=== PATIENT | female | born 1980 | race African-American/Black ===

== ENCOUNTER 2016-09-15 18:48 | Emergency (ER) | payer OTHER ==
[~2016-09-15] VITALS: Ht 152.4 cm; Wt 99.8 kg
[2016-09-15 19:11] VITALS: BP 149/91
[2016-09-15 19:46] LABS: BASOPHILS # (AUTO) 0.3 K/uL (0.00-0.22); EOSINOPHILS # (AUTO) 0.2 K/uL (0-0.4); HEMATOCRIT 42.1 % (36-48); HEMOGLOBIN 13.9 g/dL (12.0-16.0); LYMPHOCYTES # (AUTO) 3.1 K/uL (2.5-16.5); MEAN CORPUSCULAR HEMOGLOBIN 29 pg (27-31); MEAN CORPUSCULAR HGB CONC 33 g/dL (33-37); MEAN CORPUSCULAR VOLUME 88 fL (80-94); MONOCYTES # (AUTO) 0.4 K/uL (0.8-1.0); NEUTROPHILS # (AUTO) 3.5 K/uL (1.8-7.7); PLATELET COUNT (AUTO) 275 K/uL (140-450); RED BLOOD CELL COUNT(AUTO) 4.78 MIL/uL (4.20-5.40); RED CELL DISTRIBUTION WIDTH 12.8 % (11.6-13.7); WHITE BLOOD COUNT (AUTO) 7.5 K/uL (4.8-10.8)
[2016-09-15 19:50] LABS: ANION GAP 9.6 (8-16); CALCIUM 8.7 mg/dL (8.5-10.1); CARBON DIOXIDE 29.2 mmol/L (21-32); CREATININE 0.9 mg/dL (0.6-1.3); POTASSIUM 3.8 mmol/L (3.5-5.1)
[2016-09-15 19:56] LABS: ALBUMIN 3.5 g/dL (3.4-5.0); TOTAL BILIRUBIN 0.2 mg/dL (0.0-1.0); TOTAL PROTEIN, SERUM 7.4 g/dL (6.4-8.2)
--- NOTE | 2016-09-15 20:10 | NUR ---
PT TAKEN TO CT FROM THE LOBBY
--- NOTE | 2016-09-15 20:16 | NUR ---
PT TAKEN TO BED 5
--- NOTE | 2016-09-15 20:24 | NUR ---
35Y F BIB FAMILY C/O DIZZINESS AND HEADACHE X 4 DAYS, INTERRMITTENTLY 7/10 PAIN. PT STATES WHEN SHE WAS AT HOME SHE MEANSURED HER BP AND IT WAS 169/129 AND DECIDED TO COME TO [facility]. PT AAOX4, BREATHING IS UNLABORED AND CLEAR BILAT.
--- NOTE | 2016-09-15 20:49 | NUR ---
Dr. Sofia evaluating patient at bedside.
[2016-09-15] MEDS ORDERED: PROCHLORPERAZINE 10 MG/2 ML VIAL IM ONE (21:00)
[2016-09-15] MEDS ORDERED: diphenhydrAMINE 50 MG/ML VIAL IM ONE (21:00)
[2016-09-15 21:17] VITALS: BP 132/87
--- NOTE | 2016-09-15 21:17 | NUR ---
Patient discharged with v/s stable. Written and verbal after care instructions given and explained. Patient alert, oriented and verbalized understanding of instructions. Ambulatory with steady gait. All questions addressed prior to discharge. ID band removed. Patient advised to follow up with PMD. Rx of TYLENOL #3 TAB AND MOTRIN 800MG given. Patient educated on indication of medication including possible reaction and side effects. Opportunity to ask questions provided and answered.
== END 2016-09-15 21:17 | disposition home or self-care (01) ==
LOC: MED 18:48
DX: R51 Headache (principal); R11.0 Nausea; R42 Dizziness and giddiness; H53.149 Visual discomfort, unspecified
CPT/HCPCS: 36415; 70450; 80053; 84484; 85025; 93005; 96372; 99285; J0780; J1200

== ENCOUNTER 2017-11-17 06:34 | Emergency (ER) | payer OTHER ==
[~2017-11-17] VITALS: Ht 152.4 cm; Wt 102.1 kg
[2017-11-17 06:40] VITALS: BP 154/90
--- NOTE | 2017-11-17 06:40 | NUR ---
TO BED # 4 AMBULATORY
--- NOTE | 2017-11-17 07:12 | NUR ---
PT. CAME INTO THE ED DUE TO DIZZYNESS , AND HEADACHE X 3 DAYS. PT. STATES " I HAVE BEEN FEELING VERY DIZZY AND FATIGUED WITH A HEADACHE FOR ABOUT 3 DAYS AND I CHECKED MY BLOOD PRESSURE AND IT WAS VERY HIGH". PT. DENIES ANY MEDICAL HISTORY BUT DOES STATES " MY MOM HAS DMITRI BLOOD PRESSURE". PT. DENIES VOMITING OR DIARRHEA BUT DOES COMPLAIN OF NAUSEA X 3 DAYS. BLURRY VISION WELL DESCRIBED "CLOUDY". PT HAS 4/10 PRESSURE THROBBING PAIN IN HEAD THAT IS NON RADIATING. PT. DENIES ANY FALL OR INJURY. FACIAL SYMMETRY NOTED. BILAT. HAND RN FAMILY PRACTICE 3+. RR EVEN AND UNLABORED. ABLE TO SPEAK IN CLEAR AND COMPLETE SENTENCES. ER MD NOTIFIED. SAFETY PRECAUTIONS IMPLEMENTED. WILL CONTINUE TO MONITOR.
--- NOTE | 2017-11-17 07:30 | NUR ---
PT. PROVIDED WITH A CUP OF WATER AT THIS TIME. TOLERATED WELL.
--- NOTE | 2017-11-17 07:57 | NUR ---
DR GARCIA EVALUATING PT AT BEDSIDE
[2017-11-17] MEDS: HYDROCHLOROTHIAZIDE 25 MG TAB PO SCH ×2 (08:23→09:03)
[2017-11-17 08:29] LABS: BASOPHILS # (AUTO) 0.1 K/uL (0.00-0.22); BASOPHILS % (AUTO) 1.9 % (0.0-2.0); EOSINOPHILS # (AUTO) 0.2 K/uL (0-0.4); EOSINOPHILS % (AUTO) 3.9 % (0.0-4.0); HEMATOCRIT 41.9 % (36-48); HEMOGLOBIN 14.2 g/dL (12.0-16.0); LYMPHOCYTES # (AUTO) 2.2 K/uL (2.5-16.5); LYMPHOCYTES % (AUTO) 38.9 % (20.5-51.1); MEAN CORPUSCULAR HEMOGLOBIN 29 pg (27-31); MEAN CORPUSCULAR HGB CONC 34 g/dL (33-37); MEAN CORPUSCULAR VOLUME 86.8 fL (80-94); MONOCYTES # (AUTO) 0.4 K/uL (0.8-1.0); MONOCYTES % (AUTO) 7.4 % (1.7-9.3); NEUTROPHILS # (AUTO) 2.8 K/uL (1.8-7.7); NEUTROPHILS % (AUTO) 47.9 % (42.2-75.2); PLATELET COUNT (AUTO) 252 K/uL (140-450); RED BLOOD CELL COUNT(AUTO) 4.83 MIL/uL (4.20-5.40); RED CELL DISTRIBUTION WIDTH 13.8 % (11.6-13.7); WHITE BLOOD COUNT (AUTO) 5.7 K/uL (4.8-10.8)
[2017-11-17 08:35] LABS: APPEARANCE,URINE CLEAR (CLEAR); BILIRUBIN,URINE NEGATIVE (NEGATIVE); BLOOD, URINE NEGATIVE (NEGATIVE); COLOR,URINE YELLOW (YELLOW); LEUKOCYTE ESTERASE ,URINE NEGATIVE (NEGATIVE); NITRITE, URINE NEGATIVE (NEGATIVE); UGLUCOSE NEGATIVE (NEGATIVE)
[2017-11-17 08:38] LABS: CREATININE 0.9 mg/dL (0.6-1.3)
[2017-11-17 08:45] LABS: ALBUMIN 3.6 g/dL (3.4-5.0); TOTAL BILIRUBIN 0.2 mg/dL (0.0-1.0)
--- NOTE | 2017-11-17 08:49 | NUR ---
PT. RESTING COMFORTABLY IN BED, RR EVEN AND UNLABORED. BED IN LOWEST POSITION. WILL CONTINUE TO MONITOR.
[2017-11-17] MEDS ORDERED: LISINOPRIL 20 MG TAB PO ONE (09:00)
[2017-11-17] MEDS ORDERED: LISINOPRIL 20 MG TAB PO SCH (09:00)
--- NOTE | 2017-11-17 10:00 | NUR ---
PT. IN BED, RR EVEN AND UNLABORED. SLEEPING. BED IN LOWEST POSITION. WILL CONTINUE TO MONITOR. VSS
[2017-11-17 10:50] VITALS: BP 153/98
--- NOTE | 2017-11-17 10:50 | NUR ---
Patient discharged with v/s stable. Written and verbal after care instructions given and explained. Patient alert, oriented and verbalized understanding of instructions. Ambulatory with steady gait. All questions addressed prior to discharge. ID band removed. Patient advised to follow up with PMD. Rx of LISINOPRIL/ HYDROCHLOROTHIAZIDE 20MG-25MG given. Patient educated on indication of medication including possible reaction and side effects. Opportunity to ask questions provided and answered.
== END 2017-11-17 10:50 | disposition home or self-care (01) ==
LOC: MED 06:34
DX: I16.0 Hypertensive urgency (principal)
CPT/HCPCS: 36415; 80053; 81003; 85025; 93005; 99284; 99285

== ENCOUNTER 2018-05-14 11:41 | Emergency (ER) | payer OTHER ==
[~2018-05-14] VITALS: Ht 152.4 cm; Wt 101.6 kg
[2018-05-14 11:46] VITALS: BP 158/94
--- NOTE | 2018-05-14 11:47 | NUR ---
BIB SELF. PATIENT PRESENTS TO ED WITH TINGLING AND NUMBING TO LEFT SIDE OF THE BODY X 2 DAYS, NO TRAUMA STATED. AAO X4, NO FACIAL DROOP, FULL CLEAR SPEECH, BILATERAL ARM AND LEG STRENGTH, DRY COUGHING NOTED. PATIENT POSITIONED FOR COMFORT; HOB ELEVATED; BEDRAILS UP X1; BED DOWN. ER MD MADE AWARE OF PT STATUS.
--- NOTE | 2018-05-14 13:34 | NUR ---
Patient being evaluated by physician at bedside.
[2018-05-14] MEDS ORDERED: ALBUTEROL 0.083% 2.5 MG/3 ML NEBU INH ONE (13:35)
--- NOTE | 2018-05-14 13:45 | NUR ---
RT AT BEDSIDE
--- NOTE | 2018-05-14 14:11 | NUR ---
PT TAKEN TO XRAY VIA WHEEL CHAIR
--- NOTE | 2018-05-14 14:11 | NUR ---
PT TAKEN TO XRAY VIA WHEELCHAIR
--- NOTE | 2018-05-14 14:15 | NUR ---
PT BROUGHT BACK FROM RADIOLOGY VIA WHEEL CHAIR
--- NOTE | 2018-05-14 14:15 | NUR ---
Randa baker in [facility] - 05/14/18 at 1416 by MEDZEV PT BROUGHT BACK FROM X-RAY VIA WHEEL CHAIR
[2018-05-14 15:43] VITALS: BP 151/92
== END 2018-05-14 15:43 | disposition home or self-care (01) ==
LOC: MED 11:41
DX: J98.01 Acute bronchospasm (principal); J40 Bronchitis, not specified as acute or chronic; R20.2 Paresthesia of skin; R11.2 Nausea with vomiting, unspecified; I10 Essential (primary) hypertension
CPT/HCPCS: 71046; 81002; 81025; 94640; 99283; J7613

== ENCOUNTER 2018-05-21 16:34 | Emergency (ER) | payer OTHER ==
[~2018-05-21] VITALS: Ht 152.4 cm; Wt 101.6 kg
[2018-05-21 16:38] VITALS: BP 160/106
--- NOTE | 2018-05-21 16:40 | NUR ---
PT AMBULATED TO BED 12
--- NOTE | 2018-05-21 16:50 | NUR ---
37 Y/F PT C/O 11/07 LLQ ABDOMINAL PAIN STARTED 1 WEEK AGO, DULL PAIN, INTERMITTENT. +NAUSEA/DIARRHEA. DENIES DYSURIA. PLACED IN BED, CONNECTED TO MONITOR. WAITING FOR ER MD EVALUATION. BED LOCK AND IN LOW POSITION.
[2018-05-21] MEDS ORDERED: KETOROLAC 30 MG/ML VIAL IVP ONE (17:50)
[2018-05-21] MEDS: LEVOFLOXACIN 500 MG/D5W PREMIX 100 ML IV ONE ×2 (18:13→18:45)
[2018-05-21 18:31] LABS: APPEARANCE,URINE CLEAR (CLEAR); BILIRUBIN,URINE NEGATIVE (NEGATIVE); BLOOD, URINE NEGATIVE (NEGATIVE); COLOR,URINE YELLOW (YELLOW); LEUKOCYTE ESTERASE ,URINE NEGATIVE (NEGATIVE); NITRITE, URINE NEGATIVE (NEGATIVE); PH,URINE 6.5 (5.0-9.0); UGLUCOSE NEGATIVE (NEGATIVE)
[2018-05-21 18:55] LABS: BASOPHILS # (AUTO) 0.1 K/uL (0.00-0.22); BASOPHILS % (AUTO) 1.2 % (0.0-2.0); EOSINOPHILS # (AUTO) 0.3 K/uL (0-0.4); HEMATOCRIT 42.5 % (36-48); HEMOGLOBIN 14.3 g/dL (12.0-16.0); LYMPHOCYTES # (AUTO) 3.6 K/uL (2.5-16.5); LYMPHOCYTES % (AUTO) 44.1 % (20.5-51.1); MEAN CORPUSCULAR HEMOGLOBIN 29 pg (27-31); MEAN CORPUSCULAR HGB CONC 34 g/dL (33-37); MEAN CORPUSCULAR VOLUME 86.7 fL (80-94); MONOCYTES # (AUTO) 0.7 K/uL (0.8-1.0); MONOCYTES % (AUTO) 8.6 % (1.7-9.3); NEUTROPHILS # (AUTO) 3.4 K/uL (1.8-7.7); NEUTROPHILS % (AUTO) 42.1 % (42.2-75.2); PLATELET COUNT (AUTO) 280 K/uL (140-450); RED CELL DISTRIBUTION WIDTH 13.6 % (11.6-13.7); WHITE BLOOD COUNT (AUTO) 8.2 K/uL (4.8-10.8)
[2018-05-21 19:00] LABS: ALBUMIN 3.5 g/dL (3.4-5.0); ANION GAP 12.7 (8-16); CARBON DIOXIDE 28.7 mmol/L (21-32); POTASSIUM 4.4 mmol/L (3.5-5.1); TOTAL BILIRUBIN 0.2 mg/dL (0.0-1.0)
--- NOTE | 2018-05-21 19:05 | NUR ---
Pt report given to WILLIAM SAVAGE. Transfer of care at this time.
[2018-05-21 19:44] VITALS: BP 149/87
--- NOTE | 2018-05-21 19:44 | NUR ---
Patient discharged with v/s stable. Written and verbal after care instructions given and explained by Dr. Kirby. Patient alert, oriented and verbalized understanding of instructions. Ambulatory with steady gait. All questions addressed prior to discharge by Dr. Kirby. ID band removed. Patient advised to follow up with PMD. Rx of MILK OF MAGNESIA given. Patient educated on indication of medication including possible reaction and side effects by Dr. Kirby. Opportunity to ask questions provided and answered by Dr. Kirby.
== END 2018-05-21 19:44 | disposition home or self-care (01) ==
LOC: MED 16:34
DX: K59.00 Constipation, unspecified (principal); I10 Essential (primary) hypertension
CPT/HCPCS: 36415; 74018; 80053; 81003; 81025; 85025; 96365; 96375; 99284; J1885; J1956; Q0092

== ENCOUNTER 2019-01-13 16:11 | Emergency (ER) | payer OTHER ==
[~2019-01-13] VITALS: Ht 154.9 cm; Wt 101.6 kg
[2019-01-13 16:19] VITALS: BP 188/97
--- NOTE | 2019-01-13 16:26 | NUR ---
PT AMB TO BED 7 WITH STEADY GAIT
--- NOTE | 2019-01-13 16:27 | NUR ---
REFEREED FROM URGENT CARE FOR RULE OUT DVT IN BILTERAL LEGS. PT C/O LOWER EXTREMITY PAIN X 2 WEEKS AND SWELLING X TUESDAY. PMH- HTN, PRE-DIABETIC. PATIENT STATES PAIN OF 7/10 AT THIS TIME. PATIENT POSITIONED FOR COMFORT; HOB ELEVATED; BEDRAILS UP X1; BED DOWN. ER MD MADE AWARE OF PT STATUS.
[2019-01-13] MEDS ORDERED: KETOROLAC 60 MG/2 ML VIAL IM ONE (18:05)
[2019-01-13 18:29] LABS: BASOPHILS # (AUTO) 0.1 K/uL (0.00-0.22); BASOPHILS % (AUTO) 1.4 % (0.0-2.0); EOSINOPHILS # (AUTO) 0.3 K/uL (0-0.4); EOSINOPHILS % (AUTO) 4.2 % (0.0-4.0); HEMOGLOBIN 13.5 g/dL (12.0-16.0); LYMPHOCYTES # (AUTO) 2.9 K/uL (2.5-16.5); MEAN CORPUSCULAR HEMOGLOBIN 29 pg (27-31); MEAN CORPUSCULAR HGB CONC 33 g/dL (33-37); MEAN CORPUSCULAR VOLUME 88.1 fL (80-94); MONOCYTES # (AUTO) 0.5 K/uL (0.8-1.0); MONOCYTES % (AUTO) 6.8 % (1.7-9.3); NEUTROPHILS % (AUTO) 44.6 % (42.2-75.2); PLATELET COUNT (AUTO) 285 K/uL (140-450); RED BLOOD CELL COUNT(AUTO) 4.65 MIL/uL (4.20-5.40); RED CELL DISTRIBUTION WIDTH 13.7 % (11.6-13.7); WHITE BLOOD COUNT (AUTO) 6.7 K/uL (4.8-10.8)
[2019-01-13 18:56] LABS: PROTHROMBIN TIME 9.6 secs (10.8-13.4)
[2019-01-13 18:59] LABS: ALBUMIN 3.6 g/dL (3.4-5.0); ANION GAP 12.2 (8-16); CARBON DIOXIDE 26.6 mmol/L (21-32); MAGNESIUM 1.8 mg/dL (1.8-2.4); POTASSIUM 3.8 mmol/L (3.5-5.1)
[2019-01-13 19:06] VITALS: BP 150/89
[2019-01-13 20:20] LABS: TOTAL BILIRUBIN 0.2 mg/dL (0.0-1.0)
== END 2019-01-13 19:06 | disposition home or self-care (01) ==
LOC: MED 16:11
DX: M79.604 Pain in right leg (principal); M79.605 Pain in left leg; R06.02 Shortness of breath; I10 Essential (primary) hypertension; Z88.5 Allergy status to narcotic agent
CPT/HCPCS: 36415; 80053; 81025; 83735; 85025; 85379; 85610; 93970; 96372; 99284; J1885; Q0092